=== PATIENT | male | born 1945 | race Caucasian/White ===

== ENCOUNTER 2018-02-25 20:37 | Inpatient (IN) | payer MEDICARE ==
[~2018-02-25] VITALS: Ht 170.2 cm; Wt 71.7 kg
[2018-02-25] MEDS ORDERED: PIPERACILLIN/TAZ 3.375G PREMIX 50 ML IV ONE (21:00)
[2018-02-25] MEDS ORDERED: SODIUM CHLORIDE 0.9% 1000ML BAG (SEPSIS BOLUS) IV ONE (21:00)
[2018-02-25] MEDS ORDERED: INSULIN REGULAR (HUMULIN R) UD 100 UNITS/ML SYR SUBCUT ONE (21:00)
[2018-02-25] MEDS ORDERED: VANCOMYCIN 1 G PREMIX 200 ML IV ONE (21:00)
[2018-02-25 21:26] LABS: BG BASE EXCESS -23.2 mmol/L (-2.0-2.0); BG CARBOXYHEMOGLOBIN 0.6 % (0.5-1.5); BG DEOXYHEMOGLOBIN 1.5 % (0.0-5.0); BG FRACTION INSPIRED OXYGEN 28; BG HCO3 ACT 5.2 mmol/L (22.0-26.0); BG METHEMOGLOBIN 0.6 % (0.0-1.5); BG OXYGEN SATURATION 98.5 % (92.0-98.5); BG OXYHEMOGLOBIN 97.3 % (94.0-97.0); BG PCO2 18.8 mmHg (35.0-45.0); BG PH 7.062 (7.350-7.450); BG PO2 181.3 mmHg (75.0-100.0); BG SAMPLE SITE RIGHT BRACHIAL; BG VENT MODE NASAL CANNULA
[2018-02-25 21:29] LABS: HEMATOCRIT. 51.3 % (42.0-52.0); HEMOGLOBIN. 15.9 g/dL (14.0-18.0); MEAN CORPUSCULAR VOLUME 96.7 fL (80.0-94.0); MEAN PLATELET VOLUME 8.6 fl (7.4-10.4); PLATELET 387 x1000/uL (130-400); RED BLOOD CELL COUNT 5.31 mill/uL (4.7-6.1)
[2018-02-25] MEDS ORDERED: INSULIN REGULAR (HUMULIN R) 300UNITS/3ML SUBCUT ONE (21:30)
[2018-02-25 21:34] LABS: CHLORIDE 105 mEq/L (98-107)
[2018-02-25 21:36] LABS: INR 1.1; PROTHROMBIN TIME 11.6 sec (9.4-11.6)
[2018-02-25 21:38] LABS: ETHANOL BLOOD < 10 mg/dL
[2018-02-25 21:53] LABS: PLATELET ESTIMATE NORMAL
[2018-02-25] MEDS ORDERED: INSULIN REGULAR (DRIP) 100 UNITS in SODIUM CHLORIDE 0.9% 100 ML IV ONE (22:15)
[2018-02-25] MEDS ORDERED: KCL 20MEQ/100ML PREMIX 100 ML IV ONE (22:15)
[2018-02-25 23:03] LABS: *AMPHETAMINES SCREEN URINE NEGATIVE (NEGATIVE); *BARBITURATES SCREEN URINE NEGATIVE (NEGATIVE); *BENZODIAZEPINES SCREEN URINE NEGATIVE (NEGATIVE); *COCAINE SCREEN URINE NEGATIVE (NEGATIVE)
[2018-02-25 23:04] LABS: CANNABINOID URINE SCREEN NEGATIVE (NEGATIVE); METHADONE URINE SCREEN NEGATIVE (NEGATIVE); OPIATES URINE SCREEN NEGATIVE (NEGATIVE); PHENCYCLIDINE URINE SCREEN NEGATIVE (NEGATIVE)
[2018-02-25 23:10] LABS: CLARITY URINE CLEAR (CLEAR); COLOR URINE YELLOW (YELLOW); KETONES URINE 4+ (NEGATIVE); LEUKOCYTE ESTERASE URINE NEGATIVE (NEGATIVE); NITRITE URINE NEGATIVE (NEGATIVE); OCCULT BLOOD URINE 2+ (NEGATIVE); PROTEIN URINE 2+ (NEGATIVE); SPECIFIC GRAVITY URINE 1.021 (1.005-1.030); UROBILINOGEN URINE 0.2 E.U./dL (0.2-1.0)
[2018-02-26] VITALS (63 sets, daily range): BP systolic 84–147; BP diastolic 49–94
[2018-02-26] MEDS ORDERED: ONDANSETRON HCL 4MG/2ML VIAL IV PRN (01:30)
[2018-02-26] MEDS ORDERED: INSULIN REGULAR (DRIP) 100 UNITS in SODIUM CHLORIDE 0.9% 99 ML IV PRN (01:30)
[2018-02-26] MEDS ORDERED: DEXTROSE 50% WATER 50ML SYRINGE IV PRN ×3 (01:45→13:30)
[2018-02-26] MEDS ORDERED: KCL 20MEQ/100ML PREMIX 100 ML IV SCH (02:00)
[2018-02-26] MEDS ORDERED: POTASSIUM ACETATE 20 MEQ in SODIUM CHLORIDE 0.9% 1,000 ML IV PRN ×3 (02:15→04:00)
[2018-02-26 02:22] LABS: PHOSPHORUS 4.8 mg/dL (2.5-4.9)
[2018-02-26] MEDS: BLOOD SUGAR DIAGNOSTIC STRIP TEST SCH ×16 (02:31→21:00)
[2018-02-26] MEDS ORDERED: DEXT 5%/0.45% NACL 1000ML 1,000 ML IV PRN (05:15)
[2018-02-26] MEDS ORDERED: DEXT 5%/0.45% NACL 1000ML 1,000 ML IV SCH (05:30)
[2018-02-26] MEDS: INSULIN REGULAR (DRIP) 100 UNITS in SODIUM CHLORIDE 0.9% 100 ML IV SCH ×2 (05:54→11:21)
[2018-02-26] MEDS: DEXT 5%/0.45% NACL 1000ML 1,000 ML IV SCH ×3 (08:08→22:20)
[2018-02-26] MEDS: PANTOPRAZOLE SODIUM 40 MG/VIAL IV SCH (08:08)
[2018-02-26] MEDS: ENOXAPARIN 40MG/0.4ML SYR SUBCUT SCH (11:21)
[2018-02-26 13:09] LABS: CHLORIDE 120 mEq/L (98-107)
[2018-02-26 13:13] LABS: AMMONIA 19 uMol/L (<32)
[2018-02-26] MEDS: INSULIN GLARGINE UD 100 UNITS/ML SYR SUBCUT SCH ×2 (14:23→22:23)
[2018-02-26] MEDS: INSULIN LISPRO 100 UNITS/ML SUBCUT SCH ×2 (17:18→22:22)
[2018-02-26] MEDS ORDERED: POTASSIUM CHLORIDE INJ 40 MEQ in DEXT 5% WATER 250 ML IV STA (23:15)
[2018-02-27] VITALS (48 sets, daily range): BP systolic 87–159; BP diastolic 53–116
[2018-02-27] MEDS: KCL 20MEQ/100ML PREMIX 100 ML IV SCH ×2 (00:32→02:01)
[2018-02-27] MEDS: BLOOD SUGAR DIAGNOSTIC STRIP TEST SCH ×4 (05:36→23:43)
[2018-02-27] MEDS: INSULIN LISPRO 100 UNITS/ML SUBCUT SCH ×5 (05:39→23:53)
[2018-02-27] MEDS: DEXT 5%/0.45% NACL 1000ML 1,000 ML IV SCH ×2 (05:46→14:05)
[2018-02-27 06:14] LABS: CHLORIDE 121 mEq/L (98-107)
[2018-02-27] MEDS: PANTOPRAZOLE SODIUM 40 MG/VIAL IV SCH (10:23)
[2018-02-27] MEDS: ENOXAPARIN 40MG/0.4ML SYR SUBCUT SCH (10:24)
[2018-02-27] MEDS: INSULIN GLARGINE UD 100 UNITS/ML SYR SUBCUT SCH ×2 (10:35→21:05)
[2018-02-27] MEDS ORDERED: IPRATROPIUM/ALBUTEROL 0.5-3(2.5)MG/3ML NEB HHN PRN (15:30)
[2018-02-27] MEDS ORDERED: THIAMINE HCL 100 MG in SODIUM CHLORIDE 0.9% 49 ML IV NR (15:30)
[2018-02-27 15:34] LABS: BG DEOXYHEMOGLOBIN 3.1 % (0.0-5.0); BG FRACTION INSPIRED OXYGEN 28; BG HCO3 ACT 25.3 mmol/L (22.0-26.0); BG METHEMOGLOBIN 0.1 % (0.0-1.5); BG OXYGEN SATURATION 96.9 % (92.0-98.5); BG OXYHEMOGLOBIN 95.8 % (94.0-97.0); BG PCO2 39.4 mmHg (35.0-45.0); BG PH 7.426 (7.350-7.450); BG PO2 90.7 mmHg (75.0-100.0); BG SAMPLE SITE RIGHT RADIAL; BG TOTAL HEMOGLOBIN 14.3 g/dL (12.0-18.0); BG VENT MODE NASAL CANNULA
[2018-02-27] MEDS: IPRATROPIUM/ALBUTEROL 0.5-3(2.5)MG/3ML NEB HHN SCH ×2 (16:50→20:23)
[2018-02-27] MEDS: METRONIDAZOLE 500 MG PREMIX 100 ML IV SCH ×2 (17:23→23:52)
[2018-02-27] MEDS: CEFEPIME 2,000 MG in DEXT 5% WATER 100 ML IV SCH (17:23)
[2018-02-27 21:21] LABS: BASOPHILS % 0.2 % (0.0-2.0); EOSINOPHILS % 0.1 % (0.0-5.0); HEMOGLOBIN. 14.3 g/dL (14.0-18.0); LYMPHOCYTES % 13.9 % (20.0-50.0); MEAN CORPUSCULAR HEMOGLOBIN 30.1 pg (28.0-32.0); MEAN PLATELET VOLUME 8.1 fl (7.4-10.4); MONOCYTES % 7.3 % (2.0-8.0); NEUTROPHILS % 78.5 % (40.0-76.0); PLATELET 166 x1000/uL (130-400); RED BLOOD CELL COUNT 4.75 mill/uL (4.7-6.1); RED CELL DISTRIBUTION WIDTH 14.2 % (11.6-14.6)
[2018-02-27 21:35] LABS: HEMATOCRIT. 42.1 % (42.0-52.0)
[2018-02-27 21:36] LABS: MEAN CORPUSCULAR VOLUME 88.6 fL (80.0-94.0)
[2018-02-28] VITALS (47 sets, daily range): BP systolic 100–180; BP diastolic 57–109
[2018-02-28] MEDS: IPRATROPIUM/ALBUTEROL 0.5-3(2.5)MG/3ML NEB HHN SCH ×6 (00:06→20:31)
[2018-02-28] MEDS: ACETYLCYSTEINE 100MG/ML 10% VIAL 4ML INH SCH ×3 (00:06→15:47)
[2018-02-28] MEDS: DEXT 5%/0.45% NACL 1000ML 1,000 ML IV SCH ×2 (00:33→10:02)
[2018-02-28] MEDS: CEFEPIME 2,000 MG in DEXT 5% WATER 100 ML IV SCH ×2 (04:08→16:28)
[2018-02-28] MEDS: BLOOD SUGAR DIAGNOSTIC STRIP TEST SCH ×4 (05:37→21:16)
[2018-02-28 05:59] LABS: BASOPHILS % 0.3 % (0.0-2.0); EOSINOPHILS % 0.2 % (0.0-5.0); HEMOGLOBIN. 13.7 g/dL (14.0-18.0); LYMPHOCYTES % 15.5 % (20.0-50.0); MEAN CORPUSCULAR HEMOGLOBIN 30.1 pg (28.0-32.0); MEAN CORPUSCULAR VOLUME 89.9 fL (80.0-94.0); MEAN PLATELET VOLUME 8.5 fl (7.4-10.4); MONOCYTES % 6.8 % (2.0-8.0); NEUTROPHILS % 77.2 % (40.0-76.0); PLATELET 155 x1000/uL (130-400); RED BLOOD CELL COUNT 4.56 mill/uL (4.7-6.1); RED CELL DISTRIBUTION WIDTH 13.7 % (11.6-14.6)
[2018-02-28 06:34] LABS: CHLORIDE 121 mEq/L (98-107)
[2018-02-28] MEDS: INSULIN LISPRO 100 UNITS/ML SUBCUT SCH ×7 (06:35→21:36)
[2018-02-28] MEDS: ENOXAPARIN 40MG/0.4ML SYR SUBCUT SCH (10:03)
[2018-02-28] MEDS: METRONIDAZOLE 500 MG PREMIX 100 ML IV SCH ×2 (10:03→17:14)
[2018-02-28] MEDS: PANTOPRAZOLE SODIUM 40 MG/VIAL IV SCH (10:03)
[2018-02-28] MEDS: INSULIN GLARGINE UD 100 UNITS/ML SYR SUBCUT SCH ×2 (10:05→21:37)
[2018-02-28] MEDS ORDERED: POTASSIUM CHLORIDE 20MEQ TABLET SR PO NR (11:00)
[2018-02-28] MEDS: DEXTROSE 5% WATER 1,000 ML IV SCH ×2 (13:16→23:59)
[2018-02-28] MEDS: AMLODIPINE 5MG TABLET PO SCH ×2 (13:17→21:00)
[2018-02-28] MEDS ORDERED: THIAMINE HCL 100 MG in SODIUM CHLORIDE 0.9% 49 ML IV SCH (19:14)
[2018-02-28] MEDS: ATORVASTATIN CALCIUM 40MG TABLET PO SCH (21:35)
[2018-03-01] VITALS (48 sets, daily range): BP systolic 69–137; BP diastolic 27–104
[2018-03-01] MEDS: METRONIDAZOLE 500 MG PREMIX 100 ML IV SCH ×3 (00:02→17:58)
[2018-03-01] MEDS: IPRATROPIUM/ALBUTEROL 0.5-3(2.5)MG/3ML NEB HHN SCH ×6 (00:13→20:08)
[2018-03-01] MEDS: ACETYLCYSTEINE 100MG/ML 10% VIAL 4ML INH SCH ×3 (00:13→16:20)
[2018-03-01] MEDS: CEFEPIME 2,000 MG in DEXT 5% WATER 100 ML IV SCH ×2 (04:23→17:58)
[2018-03-01 05:38] LABS: BASOPHILS % 0.3 % (0.0-2.0); EOSINOPHILS % 0.8 % (0.0-5.0); HEMATOCRIT. 35.2 % (42.0-52.0); LYMPHOCYTES % 17.9 % (20.0-50.0); MEAN CORPUSCULAR HEMOGLOBIN 30.1 pg (28.0-32.0); MEAN CORPUSCULAR VOLUME 88.7 fL (80.0-94.0); MEAN PLATELET VOLUME 8.2 fl (7.4-10.4); PLATELET 141 x1000/uL (130-400); RED BLOOD CELL COUNT 3.97 mill/uL (4.7-6.1); RED CELL DISTRIBUTION WIDTH 13.7 % (11.6-14.6)
[2018-03-01 06:03] LABS: CHLORIDE 113 mEq/L (98-107)
[2018-03-01] MEDS: BLOOD SUGAR DIAGNOSTIC STRIP TEST SCH ×4 (07:50→21:12)
[2018-03-01] MEDS: ENOXAPARIN 40MG/0.4ML SYR SUBCUT SCH (09:03)
[2018-03-01] MEDS: INSULIN LISPRO 100 UNITS/ML SUBCUT SCH ×7 (09:04→21:19)
[2018-03-01] MEDS: AMLODIPINE 5MG TABLET PO SCH ×2 (09:04→21:00)
[2018-03-01] MEDS ORDERED: POTASSIUM CHLORIDE 20MEQ TABLET SR PO NR ×2 (09:45→10:30)
[2018-03-01] MEDS: INSULIN GLARGINE UD 100 UNITS/ML SYR SUBCUT SCH ×2 (10:47→21:19)
[2018-03-01] MEDS: KCL 20MEQ/100ML PREMIX 100 ML IV SCH ×2 (13:00→13:10)
[2018-03-01] MEDS ORDERED: POTASSIUM CHLORIDE 20MEQ TABLET SR PO SCH (14:45)
[2018-03-01] MEDS ORDERED: ATOR10TA69 MT (17:20)
[2018-03-01] MEDS ORDERED: AMLO10TA4 MT (17:20)
[2018-03-01] MEDS: ATORVASTATIN CALCIUM 40MG TABLET PO SCH (21:18)
[2018-03-02] VITALS (39 sets, daily range): BP systolic 85–152; BP diastolic 42–94
[2018-03-02] MEDS: IPRATROPIUM/ALBUTEROL 0.5-3(2.5)MG/3ML NEB HHN SCH ×6 (00:10→20:52)
[2018-03-02] MEDS: ACETYLCYSTEINE 100MG/ML 10% VIAL 4ML INH SCH ×3 (00:13→15:24)
[2018-03-02] MEDS: BLOOD SUGAR DIAGNOSTIC STRIP TEST SCH ×4 (00:15→17:50)
[2018-03-02] MEDS: METRONIDAZOLE 500 MG PREMIX 100 ML IV SCH ×3 (00:18→18:22)
[2018-03-02] MEDS: DEXTROSE 5% WATER 1,000 ML IV SCH ×2 (05:15→09:58)
[2018-03-02] MEDS: CEFEPIME 2,000 MG in DEXT 5% WATER 100 ML IV SCH ×2 (05:15→16:37)
[2018-03-02 05:50] LABS: BASOPHILS % 0.5 % (0.0-2.0); EOSINOPHILS % 0.9 % (0.0-5.0); HEMATOCRIT. 35.5 % (42.0-52.0); HEMOGLOBIN. 11.8 g/dL (14.0-18.0); LYMPHOCYTES % 21.5 % (20.0-50.0); MEAN CORPUSCULAR VOLUME 90.5 fL (80.0-94.0); MEAN PLATELET VOLUME 8.8 fl (7.4-10.4); NEUTROPHILS % 70.1 % (40.0-76.0); PLATELET 134 x1000/uL (130-400); RED BLOOD CELL COUNT 3.92 mill/uL (4.7-6.1); RED CELL DISTRIBUTION WIDTH 13.8 % (11.6-14.6)
[2018-03-02 05:59] LABS: CHLORIDE 112 mEq/L (98-107)
[2018-03-02] MEDS: INSULIN LISPRO 100 UNITS/ML SUBCUT SCH ×4 (08:30→21:21)
[2018-03-02] MEDS: AMLODIPINE 5MG TABLET PO SCH (09:50)
[2018-03-02] MEDS: ENOXAPARIN 40MG/0.4ML SYR SUBCUT SCH (09:53)
[2018-03-02] MEDS: INSULIN GLARGINE UD 100 UNITS/ML SYR SUBCUT SCH (09:55)
[2018-03-02] MEDS: DILTIAZEM HCL 30MG TABLET PO SCH ×2 (12:30→18:00)
[2018-03-02] MEDS: DOCUSATE SODIUM 250MG CAPSULE PO SCH (21:20)
[2018-03-02] MEDS: ATORVASTATIN CALCIUM 40MG TABLET PO SCH (21:20)
[2018-03-03] VITALS (46 sets, daily range): BP systolic 92–157; BP diastolic 40–96
[2018-03-03] MEDS: IPRATROPIUM/ALBUTEROL 0.5-3(2.5)MG/3ML NEB HHN SCH ×6 (00:22→20:22)
[2018-03-03] MEDS: ACETYLCYSTEINE 100MG/ML 10% VIAL 4ML INH SCH ×3 (00:22→17:25)
[2018-03-03] MEDS: DILTIAZEM HCL 30MG TABLET PO SCH ×4 (00:30→17:32)
[2018-03-03] MEDS: INSULIN LISPRO 100 UNITS/ML SUBCUT SCH ×5 (00:32→21:07)
[2018-03-03] MEDS: METRONIDAZOLE 500 MG PREMIX 100 ML IV SCH (00:34)
[2018-03-03] MEDS: INSULIN GLARGINE UD 100 UNITS/ML SYR SUBCUT SCH ×3 (00:34→21:08)
[2018-03-03] MEDS: CEFEPIME 2,000 MG in DEXT 5% WATER 100 ML IV SCH (03:39)
[2018-03-03 06:23] LABS: CHLORIDE 112 mEq/L (98-107)
[2018-03-03 06:33] LABS: BASOPHILS % 0.5 % (0.0-2.0); EOSINOPHILS % 1.2 % (0.0-5.0); HEMATOCRIT. 34.8 % (42.0-52.0); HEMOGLOBIN. 11.8 g/dL (14.0-18.0); LYMPHOCYTES % 30.1 % (20.0-50.0); MEAN CORPUSCULAR HEMOGLOBIN 30.1 pg (28.0-32.0); MEAN CORPUSCULAR VOLUME 88.4 fL (80.0-94.0); MONOCYTES % 8.7 % (2.0-8.0); NEUTROPHILS % 59.5 % (40.0-76.0); PLATELET 139 x1000/uL (130-400); RED BLOOD CELL COUNT 3.93 mill/uL (4.7-6.1); RED CELL DISTRIBUTION WIDTH 13.8 % (11.6-14.6)
[2018-03-03] MEDS: BLOOD SUGAR DIAGNOSTIC STRIP TEST SCH ×4 (07:50→21:05)
[2018-03-03] MEDS: DOCUSATE SODIUM 250MG CAPSULE PO SCH (08:48)
[2018-03-03] MEDS: BISACODYL 5MG TABLET PO SCH (08:48)
[2018-03-03] MEDS: ENOXAPARIN 40MG/0.4ML SYR SUBCUT SCH (08:48)
[2018-03-03] MEDS: APIXABAN 5 MG TABLET PO SCH ×2 (13:22→21:08)
[2018-03-03] MEDS: ATORVASTATIN CALCIUM 40MG TABLET PO SCH (21:08)
[2018-03-04] VITALS (25 sets, daily range): BP systolic 81–139; BP diastolic 41–97
[2018-03-04] MEDS: DILTIAZEM HCL 30MG TABLET PO SCH ×5 (00:14→23:51)
[2018-03-04] MEDS: IPRATROPIUM/ALBUTEROL 0.5-3(2.5)MG/3ML NEB HHN SCH ×6 (00:34→21:10)
[2018-03-04] MEDS: ACETYLCYSTEINE 100MG/ML 10% VIAL 4ML INH SCH ×4 (00:34→17:04)
[2018-03-04] MEDS: BLOOD SUGAR DIAGNOSTIC STRIP TEST SCH ×4 (08:14→21:00)
[2018-03-04] MEDS: INSULIN LISPRO 100 UNITS/ML SUBCUT SCH ×3 (08:53→18:32)
[2018-03-04] MEDS: BISACODYL 5MG TABLET PO SCH (08:53)
[2018-03-04] MEDS: APIXABAN 5 MG TABLET PO SCH ×2 (08:53→22:24)
[2018-03-04] MEDS: DOCUSATE SODIUM 250MG CAPSULE PO SCH (08:53)
[2018-03-04] MEDS: INSULIN GLARGINE UD 100 UNITS/ML SYR SUBCUT SCH ×2 (10:09→22:24)
[2018-03-04] MEDS: LEVOFLOXACIN 250MG TABLET PO SCH (13:38)
[2018-03-04] MEDS: ATORVASTATIN CALCIUM 40MG TABLET PO SCH (22:23)
[2018-03-04] MEDS ORDERED: INSULIN LISPRO 100 UNITS/ML SUBCUT SCH (22:32)
[2018-03-05] MEDS: IPRATROPIUM/ALBUTEROL 0.5-3(2.5)MG/3ML NEB HHN SCH ×5 (00:45→21:16)
[2018-03-05 04:00] VITALS: BP 113/84
[2018-03-05] MEDS: DILTIAZEM HCL 30MG TABLET PO SCH ×3 (04:41→18:09)
[2018-03-05 05:43] VITALS: BP 117/83
[2018-03-05] MEDS: BLOOD SUGAR DIAGNOSTIC STRIP TEST SCH ×4 (06:40→22:33)
[2018-03-05 06:41] LABS: CHLORIDE 107 mEq/L (98-107)
[2018-03-05 07:09] LABS: HEMATOCRIT. 36.2 % (42.0-52.0); HEMOGLOBIN. 12.2 g/dL (14.0-18.0); MEAN CORPUSCULAR HEMOGLOBIN 30.2 pg (28.0-32.0); MEAN CORPUSCULAR VOLUME 89.4 fL (80.0-94.0); MEAN PLATELET VOLUME 9.2 fl (7.4-10.4); PLATELET 172 x1000/uL (130-400); RED BLOOD CELL COUNT 4.05 mill/uL (4.7-6.1); RED CELL DISTRIBUTION WIDTH 13.7 % (11.6-14.6)
[2018-03-05 08:00] VITALS: BP 132/87
[2018-03-05] MEDS: INSULIN LISPRO 100 UNITS/ML SUBCUT SCH ×6 (08:10→22:41)
[2018-03-05] MEDS: APIXABAN 5 MG TABLET PO SCH ×2 (09:20→22:31)
[2018-03-05] MEDS: DOCUSATE SODIUM 250MG CAPSULE PO SCH (09:20)
[2018-03-05] MEDS: INSULIN GLARGINE UD 100 UNITS/ML SYR SUBCUT SCH ×2 (09:20→22:35)
[2018-03-05] MEDS: BISACODYL 5MG TABLET PO SCH (09:21)
[2018-03-05 12:01] VITALS: BP 121/85
[2018-03-05] MEDS: LEVOFLOXACIN 250MG TABLET PO SCH (12:04)
[2018-03-05 14:07] LABS: PLATELET ESTIMATE NORMAL
[2018-03-05 16:00] VITALS: BP 119/83
[2018-03-05 20:00] VITALS: BP 116/69
[2018-03-05] MEDS: ATORVASTATIN CALCIUM 40MG TABLET PO SCH (22:31)
[2018-03-06] VITALS: BP 115/72
[2018-03-06] MEDS: DILTIAZEM HCL 30MG TABLET PO SCH ×4 (00:57→18:11)
[2018-03-06] MEDS: IPRATROPIUM/ALBUTEROL 0.5-3(2.5)MG/3ML NEB HHN SCH ×5 (02:39→21:51)
[2018-03-06 04:00] VITALS: BP 114/76
[2018-03-06] MEDS: BLOOD SUGAR DIAGNOSTIC STRIP TEST SCH ×4 (05:48→21:00)
[2018-03-06 06:28] LABS: HEMATOCRIT. 29.2 % (42.0-52.0); HEMOGLOBIN. 9.9 g/dL (14.0-18.0); MEAN CORPUSCULAR HEMOGLOBIN 30.1 pg (28.0-32.0); MEAN CORPUSCULAR VOLUME 88.7 fL (80.0-94.0); MEAN PLATELET VOLUME 8.2 fl (7.4-10.4); PLATELET 160 x1000/uL (130-400); RED BLOOD CELL COUNT 3.29 mill/uL (4.7-6.1); RED CELL DISTRIBUTION WIDTH 13.4 % (11.6-14.6)
[2018-03-06 07:44] LABS: CHLORIDE 107 mEq/L (98-107)
[2018-03-06 08:00] VITALS: BP 137/90
[2018-03-06] MEDS: DOCUSATE SODIUM 250MG CAPSULE PO SCH (08:26)
[2018-03-06] MEDS: APIXABAN 5 MG TABLET PO SCH ×2 (08:26→21:07)
[2018-03-06] MEDS: BISACODYL 5MG TABLET PO SCH (08:26)
[2018-03-06] MEDS: INSULIN LISPRO 100 UNITS/ML SUBCUT SCH ×7 (08:27→21:00)
[2018-03-06 10:32] LABS: PLATELET ESTIMATE NORMAL
[2018-03-06] MEDS: INSULIN GLARGINE UD 100 UNITS/ML SYR SUBCUT SCH ×2 (10:43→22:17)
[2018-03-06] MEDS: LEVOFLOXACIN 250MG TABLET PO SCH (10:43)
[2018-03-06 12:00] VITALS: BP 126/84
[2018-03-06 16:00] VITALS: BP 118/79
[2018-03-06 20:00] VITALS: BP 117/80
[2018-03-06] MEDS: ATORVASTATIN CALCIUM 40MG TABLET PO SCH (21:07)
[2018-03-07] VITALS: BP 107/55
[2018-03-07] MEDS: IPRATROPIUM/ALBUTEROL 0.5-3(2.5)MG/3ML NEB HHN SCH ×4 (01:33→21:47)
[2018-03-07 05:00] VITALS: BP 122/81
[2018-03-07] MEDS: DILTIAZEM HCL 30MG TABLET PO SCH ×4 (06:07→18:23)
[2018-03-07 06:18] LABS: HEMATOCRIT. 30.9 % (42.0-52.0); HEMOGLOBIN. 10.5 g/dL (14.0-18.0); MEAN CORPUSCULAR HEMOGLOBIN 30.3 pg (28.0-32.0); MEAN CORPUSCULAR VOLUME 88.9 fL (80.0-94.0); MEAN PLATELET VOLUME 8.1 fl (7.4-10.4); PLATELET 170 x1000/uL (130-400); RED BLOOD CELL COUNT 3.47 mill/uL (4.7-6.1); RED CELL DISTRIBUTION WIDTH 13.8 % (11.6-14.6)
[2018-03-07] MEDS: BLOOD SUGAR DIAGNOSTIC STRIP TEST SCH ×4 (07:34→21:00)
[2018-03-07 08:00] VITALS: BP 138/68
[2018-03-07] MEDS: APIXABAN 5 MG TABLET PO SCH ×2 (08:48→22:09)
[2018-03-07] MEDS: INSULIN LISPRO 100 UNITS/ML SUBCUT SCH ×7 (08:48→21:00)
[2018-03-07] MEDS: DOCUSATE SODIUM 250MG CAPSULE PO SCH (08:48)
[2018-03-07] MEDS: BISACODYL 5MG TABLET PO SCH (08:48)
[2018-03-07 09:58] LABS: PLATELET ESTIMATE NORMAL
[2018-03-07] MEDS: INSULIN GLARGINE UD 100 UNITS/ML SYR SUBCUT SCH ×2 (10:21→22:11)
[2018-03-07] MEDS: LEVOFLOXACIN 250MG TABLET PO SCH (10:37)
[2018-03-07 12:00] VITALS: BP 138/98
[2018-03-07 16:00] VITALS: BP 137/97
[2018-03-07 20:00] VITALS: BP 132/88
[2018-03-07] MEDS: ATORVASTATIN CALCIUM 40MG TABLET PO SCH (22:09)
[2018-03-08] VITALS: BP 139/93
[2018-03-08] MEDS: IPRATROPIUM/ALBUTEROL 0.5-3(2.5)MG/3ML NEB HHN SCH ×3 (02:56→12:13)
[2018-03-08 04:00] VITALS: BP 129/91
[2018-03-08] MEDS: DILTIAZEM HCL 30MG TABLET PO SCH ×2 (06:36→13:01)
[2018-03-08] MEDS: BLOOD SUGAR DIAGNOSTIC STRIP TEST SCH ×2 (06:36→12:40)
[2018-03-08 07:33] LABS: EOSINOPHILS % 1.2 % (0.0-5.0); HEMATOCRIT. 33.8 % (42.0-52.0); HEMOGLOBIN. 11.3 g/dL (14.0-18.0); LYMPHOCYTES % 37.1 % (20.0-50.0); MEAN CORPUSCULAR HEMOGLOBIN 29.6 pg (28.0-32.0); MEAN CORPUSCULAR VOLUME 88.3 fL (80.0-94.0); MEAN PLATELET VOLUME 7.9 fl (7.4-10.4); MONOCYTES % 14.1 % (2.0-8.0); NEUTROPHILS % 46.6 % (40.0-76.0); PLATELET 210 x1000/uL (130-400); RED BLOOD CELL COUNT 3.83 mill/uL (4.7-6.1); RED CELL DISTRIBUTION WIDTH 13.6 % (11.6-14.6)
[2018-03-08 07:59] LABS: CHLORIDE 106 mEq/L (98-107)
[2018-03-08 08:00] VITALS: BP 141/90
[2018-03-08] MEDS: INSULIN LISPRO 100 UNITS/ML SUBCUT SCH ×4 (08:10→13:00)
[2018-03-08] MEDS: BISACODYL 5MG TABLET PO SCH (08:45)
[2018-03-08] MEDS: APIXABAN 5 MG TABLET PO SCH (08:45)
[2018-03-08] MEDS: DOCUSATE SODIUM 250MG CAPSULE PO SCH (08:45)
[2018-03-08] MEDS: INSULIN GLARGINE UD 100 UNITS/ML SYR SUBCUT SCH (10:25)
[2018-03-08] MEDS: LEVOFLOXACIN 250MG TABLET PO SCH (10:25)
[2018-03-08 12:00] VITALS: BP 140/96
== END 2018-03-08 15:02 | DRG 64 ==
LOC: ER 20:47 → CVICU 22:35 → EDBEDREQTM 22:38 → EDBEDREQ 22:38 → ENRESERV 22:44 → 7WST 03-04 17:00
PROVIDERS: ADMIT Internal Medicine; ATTEND Internal Medicine
DX: I63.9 Cerebral infarction, unspecified (principal); J69.0 Pneumonitis due to inhalation of food and vomit; E43 Unspecified severe protein-calorie malnutrition; G93.41 Metabolic encephalopathy; J96.00 Acute respiratory failure, unspecified whether with hypoxia or hypercapnia; E11.10 Type 2 diabetes mellitus with ketoacidosis without coma; E87.0 Hyperosmolality and hypernatremia; N17.9 Acute kidney failure, unspecified; I48.1 Persistent atrial fibrillation; I48.92 Unspecified atrial flutter; G81.94 Hemiplegia, unspecified affecting left nondominant side; E87.6 Hypokalemia; D64.9 Anemia, unspecified; I48.0 Paroxysmal atrial fibrillation; I11.0 Hypertensive heart disease with heart failure; I50.9 Heart failure, unspecified; E78.5 Hyperlipidemia, unspecified; I49.3 Ventricular premature depolarization; D72.819 Decreased white blood cell count, unspecified; Z86.73 Personal history of transient ischemic attack (TIA), and cerebral infarction without residual deficits; Z68.24 Body mass index [BMI] 24.0-24.9, adult
CPT/HCPCS: 36415; 36600; 51702; 70450; 70551; 71045; 80048; 80053; 80061; 80305; 81003; 82140; 82375; 82805; 82962; 83036; 83605; 83735; 83880; 84100; 84443; 84484; 85025; 85610; 86850; 86900; 87040; 87086; 92610; 93005; 93306; 93880; 94640; 96361; 96365; 96367; 97116; 97162; 97165; 97530; 99291; A6261; C9113; G0482; J0692; J1650; J1815; J2405; J2543; J3370; J3411; J3480; J3490; J7030; J7040; J7042; J7050; J7060; J7070; J7608; J7620; A4315